=== PATIENT | female | born 1990 | race African-American/Black ===

== ENCOUNTER 2016-07-24 17:21 | Emergency (ER) | payer SELFPAY ==
[~2016-07-24] VITALS: Ht 170.2 cm; Wt 63.5 kg
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
[2016-07-24 19:40] VITALS: BP 98/65
== END 2016-07-24 19:45 | disposition home or self-care (01) ==
LOC: EMR 18:25
DX: S39.012A Strain of muscle, fascia and tendon of lower back, initial encounter (principal); V43.62XA Car passenger injured in collision with other type car in traffic accident, initial encounter; Y93.9 Activity, unspecified; Y92.410 Unspecified street and highway as the place of occurrence of the external cause; O26.91 Pregnancy related conditions, unspecified, first trimester; Z3A.10 10 weeks gestation of pregnancy
CPT/HCPCS: 99282